=== PATIENT | male | born 1950 | race Caucasian/White ===

== ENCOUNTER → 2019-04-28 | Outpatient (CLI) | payer MEDICARE ==
--- NOTE | 2019-04-28 11:49 | PCVCIMAG ---
APPROVED REPORT Study performed: 04/28/2019 10:50:49 Exam: Stress Echocardiogram Indication: Chest pain, HTN, HLP Patient Location: Echo lab Stress Nurse: Luz Castellanos RN Status: routine Ht: 5 ft 10 in HR: 67 bpm BP: 130/84 mmHg Rhythm: NSR Procedure The patient underwent an Exercise Stress Test using the Artie Protocol. Blood pressure, heart rate, and EKG were monitored. An Echocardiogram was performed by sterile preparation technician in four stages in quad fashion. At peak stress, four selected images were obtained and placed side by side with resting images for comparison. Stress Test Details Stress Test: Exercise stress testing was performed using a Artie protocol. HR Resting HR: 67 bpmMax Heart Rate (APMHR): 154 bpm Max HR Achieved: 139 bpmTarget HR (85% APMHR): 130 bpm % of APMHR: 90 Recovery HR: 84 bpm HR response to stress: Normal HR response to stress BP Resting BP: 130/84 mmHg Max BP: 170/68 mmHg Recovery BP: 132/80 mmHg BP response to stress: Normal blood pressure response to stress. ECG Resting ECG: Sinus Rhythm Stress ECG: Sinus Rhythm ST Change: Normal Maximum ST Deviation: 0 mm Arrhythmia: rare PVC Recovery ECG: Sinus Rhythm Recovery ST Change: Normal Recovery ST Deviation: 0 mm Recovery Arrhythmia: None Clinical Reason for Termination: Maximal effort Stress Symptoms: Dyspnea, Leg Fatigue Exercise duration: 6 min sec Highest Stage Achieved: Stage 2: 2.5 mph at 12% grade. Exercise capacity: 7 METs Overall Exercise Capacity for Age: Normal Scale: Active Angina Score: None Stress ECG Conclusion Clinical: Non-ischemic ECG: Non-ischemic Sultana Treadmill Score is 6.0 which is Low risk. Pre-Stress Echo The resting Echocardiogram showed normal left ventricular contractility with an estimated Ejection Fraction of about >55%. Normal wall motion in all segments on baseline images. Post-Stress Echo The stress Echocardiogram showed normal left ventricular contractility with an estimated Ejection Fraction of about 65%. Normal augmentation of wall motion in all segments on post stress images. Clinical No clinical or ECG evidence for ischemia. Conclusion Clinical Response: Non-ischemic Exercise Capacity: Average Stress ECG Response: Non-ischemic Stress Echo Images: Non-ischemic The left ventricle is normal in size and wall thickness in both the rest and stress images. Normal color doppler. No stenosis or regurgitation seen in the mitral, aortic or pulmonic valves. Mild tricuspid regurgitation with PAP of 29 mmHg. Normal stress echocardiogram with maximal exercise stress. Other Information Study Quality: Adequate <Conclusion> The left ventricle is normal in size and wall thickness in both the rest and stress images. Normal color doppler. No stenosis or regurgitation seen in the mitral, aortic or pulmonic valves. Mild tricuspid regurgitation with PAP of 29 mmHg. Normal stress echocardiogram with maximal exercise stress.
== END | disposition home or self-care (01) ==
LOC: PCVCIMAG 11:00
PROVIDERS: ATTEND Internal Medicine
DX: R07.2 Precordial pain (principal); I10 Essential (primary) hypertension; E78.5 Hyperlipidemia, unspecified; K21.9 Gastro-esophageal reflux disease without esophagitis; Z90.49 Acquired absence of other specified parts of digestive tract; Z82.49 Family history of ischemic heart disease and other diseases of the circulatory system; Z83.3 Family history of diabetes mellitus; Z80.0 Family history of malignant neoplasm of digestive organs; Z87.891 Personal history of nicotine dependence; Z88.0 Allergy status to penicillin; Z88.1 Allergy status to other antibiotic agents
CPT/HCPCS: 93325; 93351